=== PATIENT | male | born 1995 | race Caucasian/White ===

== ENCOUNTER 2021-08-21 03:59 | Emergency (ER) | payer OTHER ==
[2021-08-21 04:33] VITALS: BP 140/89; PULSE 72; RESP 19; TEMP 97
--- NOTE | 2021-08-21 05:10 | ED ---
Recheck HPI - General Chief Complaint: Wound/Laceration Stated Complaint: Left finger injury Time Seen by Provider: 08/21/21 04:40 Source: patient, RN notes reviewed, old records reviewed Mode of arrival: ambulatory Limitations: no limitations - History of Present Illness Initial Comments: This is a 25-year-old male to the emergency department for evaluation. Of the mandible and laceration to extremity, avulsion-type injury. No distress well here in the emergency room the patient is concerned that it is too tight are just that the pain is just been increasing. Patient has no other complaints immunizations have been given up-to-date including tetanus and patient was placed on antibiotics. He is here for just a wound reevaluation from earlier today. Patient has no medical history takes no medications MD Complaint: wound re-check -: hour(s) Returns Today for: persistent/worsening pain related to initial visit Symptoms Since Prior Visit: worsening pain Associated Symptoms: none Treatments Prior to Arrival: Given Antibiotics on, Given Pain Meds on - Related Data Allergies Allergy/AdvReac Type Severity Reaction Status Date / Time fentanyl Allergy Hallucinati Verified 08/21/21 04:38 ons midazolam [From Versed] Allergy Confusion Verified 08/21/21 04:38 Penicillins Allergy Unknown Verified 08/21/21 04:37 Review of Systems ROS Statement: Those systems with pertinent positive or pertinent negative responses have been documented in the HPI. ROS Other: All systems not noted in ROS Statement are negative. Past Medical History Past Medical History: No Reported History History of Any Multi-Drug Resistant Organisms: None Reported Past Surgical History: No Surgical Hx Reported Past Psychological History: No Psychological Hx Reported Smoking Status: Former smoker Past Alcohol Use History: None Reported Past Drug Use History: None Reported General Exam General appearance: alert, in no apparent distress Head exam: Present: atraumatic, normocephalic, normal inspection Eye exam: Present: normal appearance, PERRL, EOMI. Absent: scleral icterus, conjunctival injection, periorbital swelling ENT exam: Present: normal exam, mucous membranes moist Neck exam: Present: normal inspection. Absent: tenderness, meningismus, lymphadenopathy Respiratory exam: Present: normal lung sounds bilaterally. Absent: respiratory distress, wheezes, rales, rhonchi, stridor Cardiovascular Exam: Present: regular rate, normal rhythm, normal heart sounds. Absent: systolic murmur, diastolic murmur, rubs, gallop, clicks GI/Abdominal exam: Present: soft, normal bowel sounds. Absent: distended, tenderness, guarding, rebound, rigid Extremities exam: Present: normal inspection, full ROM, normal capillary refill, other (Patient does have midline laceration, avulsion injury of finger, it is stressed appropriately by prior hospital, no need for further dressing changes here in the ER and can be discharged home). Absent: tenderness, pedal edema, joint swelling, calf tenderness Back exam: Present: normal inspection Neurological exam: Present: alert, oriented X3, CN II-XII intact Psychiatric exam: Present: normal affect, normal mood Skin exam: Present: warm, dry, intact, normal color. Absent: rash Course Vital Signs 08/21/21 04:26 Temperature 97 F L Pulse Rate 72 Respiratory 19 Rate Blood Pressure 140/89 O2 Sat by Pulse 98 Oximetry - Reevaluation(s) Reevaluation #1: 08/21/21 Medical record is reviewed Reevaluation #2: 08/21/21 Patient informed of plan of care, he is agreeable Reevaluation #3: 08/21/21 Patient will follow-up with primary care in 1 week to reevaluate wound Medical Decision Making - Medical Decision Making 25 male to the emergency department for evaluation patient is presented today for evaluation of recheck of wound. States that he had addressed at outside facility and the pain has been increasing since. Wound is redressed here in the ER [facility] patient's pain is improved and can be discharged home Disposition Clinical Impression: Laceration, Encounter for wound care Disposition: HOME SELF-CARE Condition: Good Instructions (If sedation given, give patient instructions): Acute Wound Care (ED) Is patient prescribed a controlled substance at d/c from ED?: No Referrals: None,Stated [Primary Care Provider] - 1-2 days Time of Disposition: 06:20
[2021-08-21] MEDS ORDERED: traMADol 50 MG STARTER PACK 3 TAB BTL PO STA (06:19)
== END 2021-08-21 06:44 | disposition home or self-care (01) ==
LOC: EC 03:59
DX: S61.213A Laceration without foreign body of left middle finger without damage to nail, initial encounter (principal); Z87.891 Personal history of nicotine dependence; Z88.0 Allergy status to penicillin; W26.8XXA Contact with other sharp object(s), not elsewhere classified, initial encounter
CPT/HCPCS: 99282